=== PATIENT | male | born 1995 | race Caucasian/White ===

== ENCOUNTER 2018-12-16 12:22 | Emergency (ER) | payer BC, SELFPAY ==
[2018-12-16 12:23] VITALS: BP 141/88; PULSE 117; RESP 18; TEMP 36.6; O2SAT 98; BMI 23.6
--- NOTE | 2018-12-16 12:54 | ED.RN ---
pt has been sending texts messages to ex girlfriend threatening to kill himself. also threatening her. pt states he does wish he were and plans to kill self by hanging or overdosing. pt states other people help him inject heroin in between his toes
--- NOTE | 2018-12-16 13:08 | ED.RN ---
[id number] cow brought pt to triage today and security with pt until pt in room and sitter need evaluated d/t behavior presenting.
[2018-12-16 13:25] LABS: Absolute Neutrophil Count 8.5 X10^3/uL (2.0-7.7); Basophil# 0.03 X10^3/uL; Basophil% 0.3 % (0-1); Hematocrit 42.7 % (40-54); Hemoglobin 13.8 g/dl (13.0-16.5); Lymphocyte % 12.2 % (19-41); Mean Corp Hgb Conc 32.3 g/gl (32-36); Mean Corpuscular Hgb 28.5 pg (27.0-32.0); Mean Corpuscular Volume 88.2 fL (80-94); Mean Platelet Vol. 8.6 fl (6.2-12.0); Monocyte% 7.5 % (0-10); Neutrophil # 8.52 X10^3/uL (2.7-7.7); Neutrophil % 79.9 % (47-70); Platelet Count 305 K/mm3 (150-450); RBC Distribution Width CV 12.8 % (11.6-14.6); RBC Distribution Width SD 40.8 fl (35.1-43.9); Red Blood Count 4.84 M/mm3 (4.6-6.2); White Blood Count 10.7 K/mm3 (4.4-11.0)
[2018-12-16 13:26] LABS: POSITIVE COUNT NO; POSITIVE DIFFERENTIAL NO; POSITIVE MORPHOLOGY NO
[2018-12-16 13:37] LABS: Anion Gap 13 (5-15); BUN 17 mg/dL (7-18); BUN/Creat Ratio 21.2 RATIO (10-20); Calcium,Total 8.9 mg/dL (8.5-10.1); Chloride 105 mmol/L (98-107); EST Glomerular Filtration Rate 127 mL/min (>60); Est Glom Filt Rate - Afr Amer 153 mL/min (>60); Estimated Creatinine Clearance 115.58 ml/min; Glucose 75 mg/dL (74-106); Potassium 3.6 mmol/L (3.5-5.1); Sodium Level 140 mmol/L (136-145)
[2018-12-16 13:56] LABS: Alcohol, Blood (Medical)-Serum < 3.0 mg/dL
[2018-12-16 14:04] LABS: Amphetamine Urine VISTA POSITIVE (<1000 ng/mL); Barbiturate Urine VISTA NEGATIVE (< 200 ng/mL); Benzodiazepine Urine VISTA NEGATIVE (< 200 ng/mL); Cocaine Urine VISTA NEGATIVE (< 300 ng/mL); Ecstacy Urine VISTA POSITIVE (< 500 ng/mL); Methadone Urine VISTA NEGATIVE (< 300 ng/mL); PCP Urine VISTA NEGATIVE (< 25 ng/mL); THC Urine VISTA NEGATIVE (< 50 ng/mL); Vista UDS pH Range 6
--- NOTE | 2018-12-16 14:40 | ED.RN ---
[address] GIL AND SITTER ORDERED. ROOM CLEARED FOR SAFTEY PER PROTOCOL. AWAITING LABS FOR CRISIS TO BE CONSULTED
--- NOTE | 2018-12-16 14:55 | ED.VISSUMM ---
- ER Visit Summary Date of Service: 12/16/18 Chief Complaint: [Abnormal behavior] History of Present Illness: The patient is a 23 M presents to the emergency department via EMS from the [facility] police escort. Patient apparently was in a gymnasium talking to the bleachers. Patient displayed significantly abnormal behavior and non-tangential thinking. Patient apparently has been on a heroin binge and states that he has been using heroin for the last 4 days. Patient has been depressed since his fianc?e broke up with him several months ago. Patient states that 4 days ago he attempted to kill himself by taking an overdose of Lexapro and Adderall. Patient initially denied hallucinations. He did tell the line assembly utility worker however that he was having thoughts of wanting to kill his girlfriend. Patient has never been hospitalized for psychiatric issues. Patient denies using any other drugs besides heroin.] Physical Examination: [HEENT-pupils are 7 mm and dilated bilaterally. Reactive bilaterally., EOMI. Cranial nerves II through XII grossly intact. TMs clear. Mucous membranes moist. No adenopathy. Cardiovascular-regular rate and rhythm without murmur or ectopy Lungs-clear to auscultation, chest wall stable without crepitus or subcu emphysema Abdomen-normoactive bowel sounds, soft, nontender, no rebound or rigidity, no peritoneal signs. Extremities-intact ?4, normal range of motion, normal pulses, atraumatic] Mental status-patient alert and oriented x3. Patient at times slow to respond and needs frequent prompting and repeating of the questions. Patient at times with nonlinear thinking. He does admit to still feeling suicidal. Test Results: [CBC with differential showed white count 10.7, hemoglobin 13.8, hematocrit 43, platelets 305. Chemistries were unremarkable. Alcohol was normal. And toxicology screen was positive for amphetamines and MDMA.] Emergency Department Course and Treatment: [Patient was evaluated by crisis and it was felt that patient would require inpatient hospitalization given his suicidal ideation and recent attempt to harm self. Patient also errantly homicidal.] Treatment Plan: [Transfer to psychiatric facility] Disposition: [Transfer] Impression: [Illicit drug use Suicidal ideation Homicidal ideation Psychosis] This note was generated with [employer] software. It may contain incorrect words, spelling, and punctuation that were not noted in review of the chart prior to signing ED Disposition - Plan for ED Patient: Referrals: Care Physician,No Primary [Primary Care Provider] -
--- NOTE | 2018-12-16 15:01 | ED.DCSUM_ITS ---
- ER Visit Summary Date of Service: 12/16/18 Chief Complaint: [Abnormal behavior] History of Present Illness: The patient is a 23 M presents to the emergency department via EMS from the [facility] police escort. Patient apparently was in a gymnasium talking to the bleachers. Patient displayed sign ificantly abnormal behavior and non-tangential thinking. Patient apparently has been on a heroin binge and states that he has been using heroin for the last 4 days. Patient has been depressed since his fianc?e broke up with him several months ago. Patient states that 4 days ago he attempted to kill himself by taking an overdose of Lexapro and Adderall. Patient initially denied hallucinations. He did tell the biofuels plant construction worker however that he was having thoughts of wanting to kill his girlfriend. Patient has never been hospitalized for psychiatric issues. Patient denies using any other drugs besides heroin.] Physical Examination: [HEENT-pupils are 7 mm and dilated bilaterally. Reactive bilaterally., EOMI. Cranial nerves II through XII grossly intact. TMs clear. Mucous membranes moist. No adenopathy. Cardiovascular-regular rate and rhythm without murmur or ectopy Lungs-clear to auscultation, chest wall stable without crepitus or subcu emphysema Abdomen-normoactive bowel sounds, soft, nontender, no rebound or rigidity, no peritoneal signs. Extremities-intact ?4, normal range of motion, normal pulses, atraumatic] Mental status-patient alert and oriented x3. Patient at times slow to respond and needs frequent prompting and repeating of the questions. Patient at times with nonlinear thinking. He does admit to still feeling suicidal. Test Results: [CBC with differential showed white count 10.7, hemoglobin 13.8, hematocrit 43, platelets 305. Chemistries were unremarkable. Alcohol was normal. And toxicology screen was positive for amphetamines and MDMA.] Emergency Department Course and Treatment: [Patient was evaluated by crisis and it was felt that patient would require inpatient hospitalization given his suicidal ideation and recent attempt to harm self. Patient also errantly homicidal.] Treatment Plan: [Transfer to psychiatric facility] Disposition: [Transfer] Impression: [Illicit drug use Suicidal ideation Homicidal ideation Psychosis] This note was generated with [employer] dictation software. It may contain incorrect words, spelling, and punctuation that were not noted in review of the chart prior to signing ED Disposition - Plan for ED Patient: Referrals: Care Physician,No Primary [Primary Care Provider] -
[2018-12-16 16:23] VITALS: BP 139/89; PULSE 110; RESP 18; O2SAT 97
--- NOTE | 2018-12-16 16:28 | CM.ED ---
SOCIAL WORK NOTE PATIENT SEEN BY CARTOGRAPHIC ENGINEER, JOSEFA. PER JOSEFA, WORKING ON PLACEMENT FOR PATIENT. NURSING AND PHYSICIAN HAVE BEEN UPDATED. KAYLA TEMPLE, EMAIL MARKETING EXECUTIVE, SPECIAL SERVICE OFFICER.
[2018-12-16] MEDS: LORazepam 1 MG Tablet PO (16:40)
[2018-12-16] MEDS: Ondansetron ODT 4 MG Tablet PO (16:40)
--- NOTE | 2018-12-16 17:43 | NURSING ---
ACCEPTED AT [facility]
--- NOTE | 2018-12-16 17:51 | NURSING ---
CALLED [facility] FOR TRANSPORT. ETA IS ABOUT 1 HR
[2018-12-16 19:55] VITALS: BP 139/92; PULSE 108; RESP 18
== END 2018-12-16 19:56 ==
PROVIDERS: Emergency Provider Emergency Medicine
DX: F32.9 Major depressive disorder, single episode, unspecified (principal); F29 Unspecified psychosis not due to a substance or known physiological condition; T14.91XA Suicide attempt, initial encounter; T43.222A Poisoning by selective serotonin reuptake inhibitors, intentional self-harm, initial encounter; T43.622A Poisoning by amphetamines, intentional self-harm, initial encounter; Y92.9 Unspecified place or not applicable; Y93.9 Activity, unspecified; R45.850 Homicidal ideations; R45.851 Suicidal ideations; F11.90 Opioid use, unspecified, uncomplicated; F15.90 Other stimulant use, unspecified, uncomplicated; F19.90 Other psychoactive substance use, unspecified, uncomplicated
CPT/HCPCS: 80048; 80307; 80320; 85025; 99285; G0480